=== PATIENT | male | born 1955 | race Caucasian/White ===

== ENCOUNTER → 2016-09-12 | Outpatient (CLI) | payer OTHER ==
[~2016-09-12] MED LIST: HYDROCODONE-APA1 TA2 PO; IMITREX5 MG NS; PERCOCET 500 MG1 TAB PO; VERAPAMIL HYDR120 MG PO
== END ==
LOC: SL 12:09
DX: G47.33 Obstructive sleep apnea (adult) (pediatric) (principal)

== ENCOUNTER → 2017-03-31 | Outpatient (CLI) | payer OTHER | LOC: LAB 12:34 | DX: N40.1 Benign prostatic hyperplasia with lower urinary tract symptoms (principal) | CPT/HCPCS: G0103 ==

== ENCOUNTER → 2017-04-01 | Outpatient (CLI) | payer OTHER ==
[2017-04-01 09:24] LABS: BUN 20 mg/dL (7-18)
[2017-04-01 09:31] LABS: GFR (ESTIMATED) 86 ML/MIN (>60)
== END ==
LOC: LAB 07:22
PROVIDERS: Internal Medicine Adolescent Medicine
DX: N40.1 Benign prostatic hyperplasia with lower urinary tract symptoms (principal); E78.5 Hyperlipidemia, unspecified